=== PATIENT | male | born 1990 ===

== ENCOUNTER 2019-01-16 23:38 | Emergency (ER) | payer SELFPAY ==
[2019-01-16 23:54] VITALS: RESP 16; O2SAT 96
--- NOTE | 2019-01-17 00:23 | C.PDOC ---
History Of Present Illness 28 year old male is brought to the ED by EMS for public intoxication. Patient was found intoxicated on the street. EMS unsure if there was any trauma. Patient visible intoxicated, smelling of alcohol and cigarettes. Patient needs to be held up while ambulating. Patient is easily arousable to gentle touch but falls sleep quickly. Patient not able to answer questions coherently. Patient able to localize pain with his eyes. <Xi Beckwith - Last Filed: 01/17/19 00:23> History Per: Patient, EMS History/Exam Limitations: intoxication Onset/Duration Of Symptoms: Hrs Current Symptoms Are (Timing): Still Present Suicide/Self Injury Attempted (Context): None Modifying Factor(s): Alcohol Associated Symptoms: denies: Depression, Suicidal Thoughts, Suicidal Plan Recent travel outside of the [place]: No Additional History Per: Patient, EMS <Xi Beckwith - Last Filed: 01/17/19 00:23> <Randall Espinal - Last Filed: 01/17/19 05:38> Time Seen by Provider: 01/16/19 23:51 Chief Complaint (Nursing): Substance Abuse Past Medical History Reviewed: Historical Data, Nursing Documentation, Vital Signs Vital Signs: Last Vital Signs Temp 97.5 F L 01/16/19 23:49 Pulse 88 01/16/19 23:49 Resp 16 01/16/19 23:49 BP 130/83 01/16/19 23:49 Pulse Ox 96 01/16/19 23:49 - Medical History PMH: No Chronic Diseases Surgical History: No Surg Hx Family History: States: Unknown Family Hx - Social History Hx Alcohol Use: Yes Hx Substance Use: (unknown) - Immunization History Hx Tetanus Toxoid Vaccination: (unknown) Hx Influenza Vaccination: (unknown) Hx Pneumococcal Vaccination: (unknown) <Xi Beckwith - Last Filed: 01/17/19 00:23> Vital Signs: Last Vital Signs Temp 98.2 F 01/17/19 04:06 Pulse 78 01/17/19 04:06 Resp 16 01/17/19 04:06 BP 101/58 L 01/17/19 04:06 Pulse Ox 96 01/17/19 04:06 <Randall Espinal - Last Filed: 01/17/19 05:38> Review Of Systems Review Of Systems: ROS cannot be obtained secondary to pt's inabilty to answer questions. (Patient intoxicated not able to answert questions coherently) <Xi Beckwith - Last Filed: 01/17/19 00:23> Physical Exam - Physical Exam Appears: Non-toxic, No Acute Distress, Other (intoxicated, alcohol on breath) Skin: Normal Color, Warm, Dry, No Rash Head: Atraumatic, Normacephalic, Other (no visible trauma) Eye(s): bilateral: Normal Inspection, PERRL, EOMI Oral Mucosa: Moist Throat: Normal, No Erythema, No Exudate, Other (Gag reflex intact) Neck: Normal ROM, Supple Chest: Symmetrical Cardiovascular: Rhythm Regular Respiratory: Normal Breath Sounds, No Rales, No Rhonchi, No Wheezing Gastrointestinal/Abdominal: Soft, No Tenderness Extremity: Bilateral: Atraumatic, Normal Color And Temperature, Normal ROM Neurological/Psych: Other (easily arousable to gentle touch, not answering questions coherently ) Gait: Unsteady (due to intoxication) <Xi Beckwith - Last Filed: 01/17/19 00:23> ED Course And Treatment O2 Sat by Pulse Oximetry: 96 (ON RA) Pulse Ox Interpretation: Normal <Xi Beckwith - Last Filed: 01/17/19 00:23> Pulse Ox Interpretation: Normal Reevaluation Time: 05:25 Reassessment Condition: Improved <Randall Espinal - Last Filed: 01/17/19 05:38> Medical Decision Making Medical Decision Making: Impression: Alcohol intoxication with stable vitals signs. Arousable PLan: * Observe patient in the ED until clinically sober. <Xi Beckwith - Last Filed: 01/17/19 00:23> Disposition <Xi Beckwith - Last Filed: 01/17/19 00:23> Counseled Patient/Family Regarding: Studies Performed, Diagnosis, Need For Followup - Disposition Disposition Time: 01:00 <Randall Espinal - Last Filed: 01/17/19 05:38> - Disposition Referrals: [facility] at [facility] [Outside] Condition: FAIR Instructions: Alcohol Abuse and Alcoholism (DC) Forms: [employer] [facility] ([place]ayan) - Clinical Impression Clinical Impression: Alcohol abuse with intoxication - Scribe Statement The provider has reviewed the documentation as recorded by the Scribe Rocky Negron All medical record entries made by the Scribe were at my direction and personally dictated by me. I have reviewed the chart and agree that the record accurately reflects my personal performance of the history, physical exam, medical decision making, and the department course for this patient. I have also personally directed, reviewed, and agree with the discharge instructions and disposition. <Xi Beckwith - Last Filed: 01/17/19 00:23> Physician Patient Turnover Patient Signed Over To: Randall Espinal Handoff Comments: Pending sobriety and dispo <Xi Beckwith - Last Filed: 01/17/19 00:23>
[2019-01-17 04:08] VITALS: BP 101/58; PULSE 78; TEMP 98.2
== END 2019-01-17 05:30 | disposition home or self-care (01) ==
LOC: C.ER 23:38
DX: F10.129 Alcohol abuse with intoxication, unspecified (principal); Y90.9 Presence of alcohol in blood, level not specified